=== PATIENT | female | born 1980 | race Two or more races ===

== ENCOUNTER 2017-09-07 00:17 | Emergency (ER) | payer MEDICAID ==
[~2017-09-07] VITALS: Ht 154.9 cm; Wt 76.2 kg
[2017-09-07 00:58] VITALS: BP 129/75
== END 2017-09-07 03:49 | disposition left against medical advice (07) ==
LOC: ER 00:20
DX: N64.4 Mastodynia (principal); Z53.21 Procedure and treatment not carried out due to patient leaving prior to being seen by health care provider